=== PATIENT | male | born 1970 | race Caucasian/White ===

== ENCOUNTER 2018-11-23 22:48 | Inpatient (IN) | payer OTHER ==
[~2018-11-23] VITALS: Ht 167.6 cm; Wt 106.3 kg
[2018-11-23 22:55] VITALS: Ht 167.6 cm; Wt 106.3 kg
[2018-11-23 23:41] LABS: BASOPHIL % 0.7 % (0-2); PLATELET COUNT 248 x10^3mcL (130-400); RED CELL DISTRIBUTION WIDTH 13.4 % (11.5-14.5)
[2018-11-23 23:55] LABS: CALCIUM 8.3 mg/dL (8.5-10.1); CARBON DIOXIDE 25.2 mmol/L (21-32); CHLORIDE SERUM 103 mmol/L (98-107); CREATININE SERUM 1.1 mg/dL (0.7-1.3); GFR1 > 60 mL/min; GLUCOSE SERUM 134 mg/dL (74-106); POTASSIUM SERUM 3.8 mmol/L (3.5-5.1); SODIUM SERUM 135 mmol/L (136-145)
[2018-11-23 23:59] LABS: ALBUMIN 3.4 g/dL (3.4-5.0); ALKALINE PHOSPHATASE 126 U/L (46-116); ALT/SGPT 57 U/L (16-63); AST/SGOT 31 U/L (15-37); BILIRUBIN TOTAL 0.4 mg/dL (0.20-1.00)
[2018-11-24 01:26] LABS: MAGNESIUM 2.1 mg/dL (1.8-2.4); PHOSPHOROUS 3.9 mg/dL (2.5-4.9)
[2018-11-24 01:39] LABS: FREE T4 1.1 ng/dL (0.76-1.46); FREE THYROXINE INDEX 2.6 ug/dL (1.4-4.5); T4(THYROXINE) 7.8 ug/dL (4.7-13.3)
[2018-11-24 02:54] LABS: T3 TOTAL 1.51 ng/mL
[2018-11-24 02:58] VITALS: BP 115/55
[2018-11-24 05:11] VITALS: BP 103/64
[2018-11-24 08:50] VITALS: BP 91/54
[2018-11-24] MEDS ORDERED: PEPCID20 MG PO (12:27)
[2018-11-24 13:07] LABS: BASOPHIL % 0.6 % (0-2); PLATELET COUNT 227 x10^3mcL (130-400); RED CELL DISTRIBUTION WIDTH 13.5 % (11.5-14.5)
[2018-11-24 13:08] LABS: CALCIUM 8.2 mg/dL (8.5-10.1); CHLORIDE SERUM 104 mmol/L (98-107); CREATININE SERUM 1.1 mg/dL (0.7-1.3); GFR1 > 60 mL/min; GLUCOSE SERUM 97 mg/dL (74-106); POTASSIUM SERUM 4.1 mmol/L (3.5-5.1); SODIUM SERUM 136 mmol/L (136-145)
[2018-11-24 13:55] VITALS: BP 126/83
[2018-11-24 13:58] VITALS: BP 126/83
== END 2018-11-24 15:30 | disposition home or self-care (01) | DRG 206 ==
LOC: ED 22:48 → DU 11-24 00:49
PROVIDERS: Emergency Medicine; Internal Medicine; ADMIT General Practice
DX: M94.0 Chondrocostal junction syndrome [Tietze] (principal); I16.1 Hypertensive emergency; E87.1 Hypo-osmolality and hyponatremia; I10 Essential (primary) hypertension; K21.9 Gastro-esophageal reflux disease without esophagitis; Z90.49 Acquired absence of other specified parts of digestive tract; Z82.49 Family history of ischemic heart disease and other diseases of the circulatory system; Z80.0 Family history of malignant neoplasm of digestive organs
CPT/HCPCS: 83880; 84439; J2270; J2405; J7030; Q0092

== ENCOUNTER 2020-03-04 14:23 | Emergency (ER) | payer SELFPAY ==
[~2020-03-04] VITALS: Ht 167.6 cm; Wt 102.1 kg
[~2020-03-04 14:23] MED LIST: PEPCID20 MG PO
[2020-03-04 14:38] VITALS: Ht 167.6 cm; Wt 102.1 kg
[2020-03-04 15:34] VITALS: BP 139/95
== END 2020-03-04 15:34 | disposition home or self-care (01) ==
LOC: ED 14:23
DX: U07.1 COVID-19 (principal); B34.9 Viral infection, unspecified; I10 Essential (primary) hypertension; K21.9 Gastro-esophageal reflux disease without esophagitis
CPT/HCPCS: U0003-CS